=== PATIENT | female | born 1995 | race Caucasian/White ===

== ENCOUNTER 2017-12-10 17:12 | Emergency (ER) | payer BC ==
[2017-12-10] MEDS ORDERED: DIPHENHYDRAMINE 25 MG TAB/CAP ONE (17:39)
[2017-12-10] MEDS ORDERED: METOCLOPRAMIDE 10 MG/2mL INJ ONE (17:40)
[2017-12-10] MEDS ORDERED: NA CHLORIDE 0.9% 1,000 ML ONE (17:40)
--- NOTE | 2017-12-10 18:57 | ER ---
Nurse's Notes [facility] Name: Veda Cardenas Age: 22 yrs Sex: Female : 1995 Arrival Date: 12/10/2017 Time: 17:13 Bed 20 Private MD: None, None Diagnosis: Migraine Presentation: 12/10 17:16 Presenting complaint: Patient states: Patient reports migraine headache with nausea aj since yesterday. Transition of care: patient was not received from another setting of care. Onset of symptoms was December 09, 2017. Risk Assessment: Do you want to hurt yourself or someone else? Patient reports no desire to harm self or others. Initial Sepsis Screen: Does the patient meet any 2 criteria? No. Patient's initial sepsis screen is negative. Does the patient have a suspected source of infection? No. Patient's initial sepsis screen is negative. Care prior to arrival: None. 17:16 Method Of Arrival: Ambulatory 17:16 Acuity: MATIAS 3 aj Triage Assessment: 17:18 Headache History: The patient has had previous headaches and this one is similar to aj previous episodes. General: Appears in no apparent distress. uncomfortable, Behavior is calm, cooperative, appropriate for age. Pain: Complains of pain in face and scalp. Neuro: Level of Consciousness is awake, alert, obeys commands, Oriented to person, place, time, situation, Appropriate for age Reports headache. Respiratory: Airway is patent Respiratory effort is even, unlabored, Respiratory pattern is regular, symmetrical. GI: Reports nausea. Derm: Skin is intact, is healthy with good turgor, Skin is pink, warm \T\ dry. normal. 19:14 Pain: Also complains of no other associated symptoms. ao 19:14 Pain: Pain began 2 hours ago. 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 - Social history:: Smoking status: Patient/guardian denies using tobacco. - Ebola Screening: : Patient negative for fever greater than or equal to 101.5 degrees Fahrenheit, and additional compatible Ebola Virus Disease symptoms Patient denies exposure to infectious person Patient denies travel to an Ebola-affected area in the 21 days before illness onset No symptoms or risks identified at this time. Screenin:44 Abuse screen: Denies threats or abuse. Nutritional screening: No deficits noted. em Tuberculosis screening: No symptoms or risk factors identified. Fall Risk None identified. Assessment: 17:44 General: Appears in no apparent distress. uncomfortable, Behavior is calm, cooperative. em Pain: Complains of pain in right oriental orthodox and forehead and scalp Pain currently is 10 out of 10 on a pain scale. Neuro: Level of Consciousness is awake, alert, obeys commands, Oriented to person, place, time, situation. Cardiovascular: Capillary refill < 3 seconds Patient's skin is warm and dry. Respiratory: Airway is patent Respiratory effort is even, unlabored, Respiratory pattern is regular, symmetrical. GI: Abdomen is flat. : No signs and/or symptoms were reported regarding the genitourinary system. EENT: No signs and/or symptoms were reported regarding the EENT system. Derm: Skin is intact, Skin is pink, warm \T\ dry. Musculoskeletal: Range of motion: intact in all extremities. 18:01 Reassessment: Patient appears in no apparent distress at this time. I agree with above iw assessment by Mike Maya LVN. 18:46 Reassessment: Patient appears in no apparent distress at this time. Patient and/or em family updated on plan of care and expected duration. Pain level reassessed. Patient is alert, oriented x 3, equal unlabored respirations, skin warm/dry/pink. rates 3/10, provider notified Patient states feeling better. 19:15 Reassessment: DC instructions given to patient. patient agree with the POC and to ao follow up with DR Martines. Vital Signs: 17:18 BP 122 / 88; Pulse 67; Resp 18; Temp 97.8; Pulse Ox 98% on R/A; Weight 58.97 kg; Height aj 5 ft. 5 in. (165.10 cm); 18:00 BP 111 / 69; Pulse 60; Resp 17; Pulse Ox 100% on R/A; dh3 18:34 BP 115 / 78; Pulse 66; Resp 16; Pulse Ox 100% on R/A; dh3 17:18 Body Mass Index 21.63 (58.97 kg, 165.10 cm) ED Course: 17:13 Patient arrived in ED. mr 17:13 None, None is Private Physician. mr 17:17 Triage completed. aj 17:18 Arm band placed on right wrist. Patient placed in an exam room. aj 17:21 Kai Garcia PA is PHCP. gideonm 17:21 Dung Sullivan MD is Attending Physician. jose 17:32 Mike Maya LVN is Primary Nurse. em 17:44 Patient has correct armband on for positive identification. Placed in gown. Bed in low em position. Call light in reach. Adult w/ patient. 17:44 No provider procedures requiring assistance completed. Inserted saline lock: 20 gauge em in right antecubital area, using aseptic technique. 18:56 Omega Martines MD is Referral Physician. jose 19:14 IV discontinued, intact, bleeding controlled, No redness/swelling at site. Pressure ao dressing applied. Administered Medications: 17:46 Drug: NS 0.9% 1000 ml Route: IV; Rate: 1 bolus; Site: right antecubital; em 18:30 Follow up: IV Status: Completed infusion; IV Intake: 1000ml em 17:46 Drug: Benadryl 50 mg Route: PO; em 18:30 Follow up: Response: No adverse reaction; Pain is decreased em 17:47 Drug: Reglan 10 mg Route: IVP; Site: right antecubital; iw 18:30 Follow up: Response: No adverse reaction; Pain is decreased em Intake: 18:30 IV: 1000ml; Total: 1000ml. em Outcome: 18:56 Discharge ordered by . gideon 19:14 Discharged to home ambulatory. ao 19:14 Condition: stable 19:14 Discharge instructions given to patient, Instructed on discharge instructions, follow up and referral plans. Demonstrated understanding of instructions, follow-up care, medications. 19:15 Patient left the ED. ao Signatures: Maureen Bray RN RN Kai Kan PA PA jmm Rivera, Maria mr Munoz, Edgar, ICE CREAM MAN ICE CREAM MAN Velvet Muhammad, RN RN Sidney Urias, RN RN Siobhan Cuevas [facility]
--- NOTE | 2017-12-10 18:57 | EDPHYS ---
Physician Documentation [facility] Name: Veda Cardenas Age: 22 yrs Sex: Female : 1995 Arrival Date: 12/10/2017 Time: 17:13 Bed 20 Private MD: None, None ED Physician Dung Sullivan HPI: 12/10 17:31 This 22 yrs old Female presents to ER via Ambulatory with complaints of jmm Headache. 17:31 The patient complains of pain to the forehead and right nondenominational. The patient describes jmm the headache as aching. Onset: The symptoms/episode began/occurred gradually, 1 day(s) ago. Associated signs and symptoms: Pertinent positives: nausea, Pertinent negatives: neck stiffness, rash, vomiting, weakness. Headache History: The patient has had previous headaches and this one is similar to previous episodes. The symptoms are alleviated by nothing. the symptoms are aggravated by nothing. 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 - Social history:: Smoking status: Patient/guardian denies using tobacco. - Ebola Screening: : Patient negative for fever greater than or equal to 101.5 degrees Fahrenheit, and additional compatible Ebola Virus Disease symptoms Patient denies exposure to infectious person Patient denies travel to an Ebola-affected area in the 21 days before illness onset No symptoms or risks identified at this time. ROS: 17:31 Constitutional: Negative for fever, chills, and weight loss, Neck: Negative for injury, jmm pain, and swelling, Cardiovascular: Negative for chest pain, palpitations, and edema, Respiratory: Negative for shortness of breath, cough, wheezing, and pleuritic chest pain. 17:31 Back: Negative for injury and pain, MS/Extremity: Negative for injury and deformity, Skin: Negative for injury, rash, and discoloration. 17:31 Abdomen/GI: Positive for nausea. 17:31 Neuro: Positive for headache. 17:31 All other systems are negative. Exam: 17:31 Constitutional: This is a well developed, well nourished patient who is awake, alert, jmm and in no acute distress. Head/Face: atraumatic. Neck: Trachea midline, Supple Chest/axilla: Normal chest wall appearance and motion. Cardiovascular: Regular rate and rhythm. No edema appreciated Respiratory: Normal respirations, no respiratory distress appreciated Abdomen/GI: Non distended, soft Back: Normal ROM Skin: General appearance color normal MS/ Extremity: Moves all extremities, no obvious deformities appreciated, no edema noted to the lower extremities 17:31 Neuro: Orientation: is normal, Mentation: is normal, Memory: is normal, Cerebellar function: is grossly normal, Motor: is normal, Gait: is steady. 17:31 Psych: Behavior/mood is pleasant, cooperative. Vital Signs: 17:18 BP 122 / 88; Pulse 67; Resp 18; Temp 97.8; Pulse Ox 98% on R/A; Weight 58.97 kg; Height aj 5 ft. 5 in. (165.10 cm); 18:00 BP 111 / 69; Pulse 60; Resp 17; Pulse Ox 100% on R/A; dh3 18:34 BP 115 / 78; Pulse 66; Resp 16; Pulse Ox 100% on R/A; dh3 17:18 Body Mass Index 21.63 (58.97 kg, 165.10 cm) MDM: 17:26 Patient medically screened. [facility] 18:43 Data reviewed: vital signs, nurses notes. Counseling: I had a detailed discussion with [facility] the patient and/or guardian regarding: the historical points, exam findings, and any diagnostic results supporting the discharge/admit diagnosis, the need for outpatient follow up, to return to the emergency department if symptoms worsen or persist or if there are any questions or concerns that arise at home. ED course: I do not suspect meningitis or SAH. Symptoms alleviated in the ED. Advised to follow up with neuro for further evaluation. Given strict return precautions. Patient and family understood and agree with the plan of care. . Administered Medications: 17:46 Drug: NS 0.9% 1000 ml Route: IV; Rate: 1 bolus; Site: right antecubital; em 18:30 Follow up: IV Status: Completed infusion; IV Intake: 1000ml em 17:46 Drug: Benadryl 50 mg Route: PO; em 18:30 Follow up: Response: No adverse reaction; Pain is decreased em 17:47 Drug: Reglan 10 mg Route: IVP; Site: right antecubital; iw 18:30 Follow up: Response: No adverse reaction; Pain is decreased em Disposition: 12/10/17 18:56 Discharged to Home. Impression: Migraine. - Condition is Stable. - Discharge Instructions: Migraine Headache. - Medication Reconciliation Form, Thank You Letter, Antibiotic Education, Prescription Opioid Use form. - Follow up: Omega Martines MD; When: 2 - 3 days; Reason: Recheck today's complaints, Continuance of care, Re-evaluation by your physician. Addendum: 12/13/2017 07:21 Co-signature as Attending Physician, Dung Sullivan MD I agree with the assessment and c cornell plan of care. Signatures: Maureen Bray RN Dung Orosco MD MD cha Mickail, Joel, PA PA [facility] Mike Maya, AIRCRAFT MANAGER AIRCRAFT MANAGER em Velvet Abdi RN RN iw Sidney Wright RN RN ao Corrections: (The following items were deleted from the chart) 12/10 19:15 18:56 12/10/2017 18:56 Discharged to Home. Impression: Migraine. Condition is Stable. ao Forms are Medication Reconciliation Form, Thank You Letter, Antibiotic Education, Prescription Opioid Use. Follow up: Omega Martines; When: 2 - 3 days; Reason: Recheck today's complaints, Continuance of care, Re-evaluation by your physician. dimitri
== END 2017-12-10 19:15 | disposition home or self-care (01) ==
LOC: ER 17:12
DX: G43.909 Migraine, unspecified, not intractable, without status migrainosus (principal); F41.9 Anxiety disorder, unspecified; F32.9 Major depressive disorder, single episode, unspecified; Z88.5 Allergy status to narcotic agent
CPT/HCPCS: 96361; 96374; 99283; J2765; J7030

== ENCOUNTER 2018-06-20 13:01 | Emergency (ER) | payer BC ==
[2018-06-20] MEDS ORDERED: DEXAMETHASONE 4 MG TAB ONE (14:09)
[2018-06-20] MEDS ORDERED: ALBUTEROL 2.5 MG/3 ML NEB SOL ONE (14:09)
[2018-06-20] MEDS ORDERED: IPRATROPIUM BROM 0.5MG/2.5ML ONE (14:10)
--- NOTE | 2018-06-20 14:33 | RAD REPORT ---
EXAM DESCRIPTION: RAD - Chest Single View - 06/20/2018 2:19 pm CLINICAL HISTORY: Cough, bronchitis diagnosis COMPARISON: None. TECHNIQUE: AP portable chest image was obtained 1410 hours . FINDINGS: No peripheral mass or consolidation. Perihilar markings are not outside of the normal rang e. Heart and vasculature are normal. No measurable pleural effusion and no pneumothorax. No acute bon y abnormality seen. No acute aortic findings suspected. IMPRESSION: No acute cardiopulmonary process.
--- NOTE | 2018-06-20 15:24 | EDPHYS ---
Physician Documentation [facility] Name: Veda Cardenas Age: 22 yrs Sex: Female : 1995 Arrival Date: 06/20/2018 Time: 13:06 Bed 14 Private MD: ED Physician Kevin Boston HPI: 06/20 14:03 This 22 yrs old Female presents to ER via Ambulatory with complaints of ps1 Breathing Difficulty, Chest Pain. 14:03 patient had influenza A a month ago and then developed bronchitis and week ago and was ps1 started on azithromycin. Patient states that she is still coughing and now short of breath with wheezing. No fever. No other medications taken for symptoms. . 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 - Social history:: Smoking status: Patient/guardian denies using tobacco. - Ebola Screening: : No symptoms or risks identified at this time. ROS: 14:03 Constitutional: Negative for fever, chills, and weight loss, Eyes: Negative for injury, ps1 pain, redness, and discharge, Cardiovascular: Negative for chest pain, palpitations, and edema, Abdomen/GI: Negative for abdominal pain, nausea, vomiting, diarrhea, and constipation, Back: Negative for injury and pain, MS/Extremity: Negative for injury and deformity, Skin: Negative for injury, rash, and discoloration, Neuro: Negative for headache, weakness, numbness, tingling, and seizure. 14:03 Respiratory: Positive for cough, pleurisy. Exam: 14:03 Constitutional: This is a well developed, well nourished patient who is awake, alert, ps1 and in no acute distress. Head/Face: Normocephalic, atraumatic. Chest/axilla: Normal chest wall appearance and motion. Nontender with no deformity. No lesions are appreciated. Cardiovascular: Regular rate and rhythm. No gallops, murmurs, or rubs. Normal PMI, no JVD. No pulse deficits. Abdomen/GI: Soft, non-tender, with normal bowel sounds. No distension or tympany. No guarding or rebound. No evidence of tenderness throughout. Skin: Warm, dry with normal turgor. Normal color with no rashes, no lesions, and no evidence of cellulitis. MS/ Extremity: Pulses equal, no cyanosis. Neurovascular intact. Full, normal range of motion. Neuro: Awake and alert, GCS 15, oriented to person, place, time, and situation. Cranial nerves II-XII grossly intact. Sensory grossly intact. 14:03 Respiratory: the patient does not display signs of respiratory distress, Respirations: normal, Breath sounds: + upper airway congestion. wheezing: Vital Signs: 13:26 BP 125 / 88; Pulse 82; Resp 14 S; Temp 98.3(O); Pulse Ox 97% on R/A; Weight 65.77 kg aa5 (R); Height 5 ft. 6 in. (167.64 cm) (R); Pain 3/10; 14:43 BP 118 / 77; Pulse 74; Resp 16 S; Pulse Ox 98% on R/A; jl7 15:46 BP 124 / 75; Pulse 75; Resp 16 S; Pulse Ox 97% on R/A; jl7 13:26 Body Mass Index 23.40 (65.77 kg, 167.64 cm) aa5 MDM: 13:58 Patient medically screened. ps1 14:15 The patient's pulmonary embolism risk score was calculated as follows: No Risks (0 Pts) ps1 Total Score: 0-2 points. This patient was found to be at low risk for a pulmonary embolism by using the Well's assessment criteria. Data reviewed: vital signs, nurses notes. ED course: PERC negative. 06/20 13:47 Order name: CXR XRAY; Complete Time: 14:45 ps1 06/20 14:07 Order name: EKG Electrocardiogram; Complete Time: 14:07 EDMS Administered Medications: 14:00 Drug: Decadron 10 mg Route: PO; jl7 14:30 Follow up: Response: No adverse reaction jl7 14:00 Drug: Albuterol - atroVENT (3:1) (2.5 mg - 0.5 mg) 3 ml Route: Nebulizer; [facility] 14:30 Follow up: Response: No adverse reaction; Marked relief of symptoms 7 Disposition: 06/20/18 15:23 Discharged to Home. Impression: Cough, Pleurisy. - Condition is Stable. - Discharge Instructions: Pleurisy. - Prescriptions for Tessalon Perles 100 mg Oral Capsule - take 1 capsule by ORAL route every 8 hours As needed; 15 capsule. Albuterol Sulfate 2.5 mg /3 mL (0.083 %) Inhalation Solution for Nebulization - inhale 1 unit by NEBULIZATION route every 8 hours As needed; 1 box. Medrol (Rivas) 4 mg Oral Tablets, Dose Pack - take 1 tablet by ORAL route as directed - follow package instructions; 1 packet. - Medication Reconciliation Form, Thank You Letter, Antibiotic Education, Prescription Opioid Use form. - Follow up: Private Physician; When: As needed; Reason: Further diagnostic work-up, Recheck today's complaints. Follow up: Emergency Department; When: As needed; Reason: Worsening of condition. - Problem is an ongoing problem. - Symptoms have improved. Signatures: Dispatcher [employer] EDMS Kandis Kline RN RN aa5 Mariano Feliz RN RN jl7 Kevin Boston MD MD ps1 Corrections: (The following items were deleted from the chart) 15:49 15:23 06/20/2018 15:23 Discharged to Home. Impression: Cough; Pleurisy. Condition is [facility] Stable. Forms are Medication Reconciliation Form, Thank You Letter, Antibiotic Education, Prescription Opioid Use. Follow up: Private Physician; When: As needed; Reason: Further diagnostic work-up, Recheck today's complaints. Follow up: Emergency Department; When: As needed; Reason: Worsening of condition. Problem is an ongoing problem. Symptoms have improved. ps1
--- NOTE | 2018-06-20 15:24 | ER ---
Nurse's Notes [facility] Name: Veda Cardenas Age: 22 yrs Sex: Female : 1995 Arrival Date: 06/20/2018 Time: 13:06 Bed 14 Private MD: Diagnosis: Cough;Pleurisy Presentation: 06/20 13:24 Presenting complaint: Patient states: "I was diagnosed with bronchitis and given a aa5 Z-pack by Dr. Byrne but the chest pain is worse now and it hurts too bad to breathe". Transition of care: patient was not received from another setting of care. Onset of symptoms was May 2018. Risk Assessment: Do you want to hurt yourself or someone else? Patient reports no desire to harm self or others. Initial Sepsis Screen: Does the patient meet any 2 criteria? No. Patient's initial sepsis screen is negative. Does the patient have a suspected source of infection? No. Patient's initial sepsis screen is negative. Care prior to arrival: None. 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 - Social history:: Smoking status: Patient/guardian denies using tobacco. - Ebola Screening: : No symptoms or risks identified at this time. Screenin:45 Abuse screen: Denies threats or abuse. Denies injuries from another. Nutritional jl7 screening: No deficits noted. Tuberculosis screening: No symptoms or risk factors identified. Fall Risk None identified. Assessment: 13:45 General: Appears in no apparent distress. uncomfortable, Behavior is calm, cooperative, jl7 appropriate for age. Pain: Complains of pain in diaphragm. Neuro: Level of Consciousness is awake, alert, obeys commands, Oriented to person, place, time, situation. Cardiovascular: Heart tones S1 S2 present Patient's skin is warm and dry. Rhythm is regular. Respiratory: Airway is patent Respiratory effort is even, unlabored, Respiratory pattern is regular, symmetrical, Breath sounds with wheezes bilaterally. GI: No signs and/or symptoms were reported involving the gastrointestinal system. : No signs and/or symptoms were reported regarding the genitourinary system. EENT: No signs and/or symptoms were reported regarding the EENT system. Derm: Skin is pink, warm \\T\\ dry. Musculoskeletal: No signs and/or symptoms reported regarding the musculoskeletal system. 14:43 Reassessment: Patient appears in no apparent distress at this time. Patient and/or jl7 family updated on plan of care and expected duration. Pain level reassessed. Patient is alert, oriented x 3, equal unlabored respirations, skin warm/dry/pink. Patient states feeling better. Patient states symptoms have improved. Vital Signs: 13:26 BP 125 / 88; Pulse 82; Resp 14 S; Temp 98.3(O); Pulse Ox 97% on R/A; Weight 65.77 kg aa5 (R); Height 5 ft. 6 in. (167.64 cm) (R); Pain 3/10; 14:43 BP 118 / 77; Pulse 74; Resp 16 S; Pulse Ox 98% on R/A; jl7 15:46 BP 124 / 75; Pulse 75; Resp 16 S; Pulse Ox 97% on R/A; jl7 13:26 Body Mass Index 23.40 (65.77 kg, 167.64 cm) aa5 ED Course: 13:06 Patient arrived in ED. mr 13:25 Triage completed. aa5 13:25 Arm band placed on. aa5 13:33 Kevin Boston MD is Attending Physician. ps1 13:36 Mariano Feliz, ESTEPHANIE is Primary Nurse. jl7 13:45 Patient has correct armband on for positive identification. Bed in low position. Call jl7 light in reach. Side rails up X 1. Pulse ox on. NIBP on. Warm blanket given. 13:55 EKG done, by dietetic tech. reviewed by Kevin Boston MD. 3 14:18 X-ray completed. Portable x-ray completed in exam room. Patient tolerated procedure mh1 well. 14:19 CXR XRAY In Process Unspecified. EDMA 15:46 No provider procedures requiring assistance completed. Patient did not have IV access jl7 during this emergency room visit. Administered Medications: 14:00 Drug: Decadron 10 mg Route: PO; jl7 14:30 Follow up: Response: No adverse reaction 7 14:00 Drug: Albuterol - atroVENT (3:1) (2.5 mg - 0.5 mg) 3 ml Route: Nebulizer; jl7 14:30 Follow up: Response: No adverse reaction; Marked relief of symptoms jl7 Outcome: 15:23 Discharge ordered by . ps1 15:46 Discharged to home ambulatory. jl7 15:46 Condition: stable 15:46 Discharge instructions given to patient, family, Instructed on discharge instructions, follow up and referral plans. medication usage, Demonstrated understanding of instructions, follow-up care, medications, Prescriptions given X 3. 15:49 Patient left the ED. jl7 Signatures: Dispatcher [employer] [facility] Kuldip Rosmery Bermudez 1 Kandis Kline, RN RN aa5 Mariano Feliz RN RN jl7 Kevin Boston MD MD ps1 Montes, Shakira 3
--- NOTE | 2018-06-20 17:27 | EKG ---
Test Date: 2018-06-20 Test Time: 13:41:04 Grid Caster: ISAC MEASUREMENT RESULTS: Intervals: Rate: 64 IL: 132 QRSD: 82 QT: 400 QTc: 412 [place]: P: 53 IL: 132 QRS: 230 T: 52 INTERPRETIVE STATEMENTS: Normal sinus rhythm Right superior axis deviation Pulmonary disease pattern Right ventricular hypertrophy Abnormal ECG No previous ECG available for comparison Electronically Signed On 06-20-18 17:26:27 CDT by Moises Marrero
== END 2018-06-20 15:49 | disposition home or self-care (01) ==
LOC: ER 13:01
DX: R09.1 Pleurisy (principal); Z88.6 Allergy status to analgesic agent; F41.8 Other specified anxiety disorders
CPT/HCPCS: 71045; 93005; 94640; 99284